=== PATIENT | female | born 1980 | race Caucasian/White ===

== ENCOUNTER 2017-02-22 11:17 | Emergency (ER) | payer MEDICAID ==
[~2017-02-22] VITALS: Ht 162.6 cm; Wt 84.0 kg
[~2017-02-22 11:17] MED LIST: BUS15T PO; HYDR-3972 PO; LORA-269 PO; ONDA8TAB9 PO; VENL150T3 PO
[2017-02-22 11:42] LABS: CLARITY,URINE Clear (Clear); COLOR,URINE Yellow (Yellow); GLUCOSE, URINE Negative (Neg); KETONES,URINE Negative (Neg); LEUKOCYTE ESTERASE ,URINE Negative (Neg); NITRITES, URINE Negative (Neg); OCCULT BLOOD,URINE Negative (Neg); PH,URINE 7.5 (4.8-8.0); PROTEIN,URINE Negative (Neg); UROBILINOGEN,URINE 0.2 E.U/dL (0.2-1.0)
[2017-02-22 11:43] LABS: UA COLLECTION TYPE CLN CATCH MIDSTREAM
[2017-02-22] MEDS ORDERED: ondansetron 4mg rapidly disintigrating tab PO ONE (13:30)
[2017-02-22] MEDS ORDERED: CefTRIAXone 250MG IM Kit w/LIDOcaine IM ONE (13:30)
[2017-02-22] MEDS ORDERED: azithromycin 250mg tablet PO ONE (13:30)
[2017-02-22 13:56] VITALS: BP 130/94
== END 2017-02-22 14:00 | disposition home or self-care (01) ==
LOC: ER 11:18
DX: R30.0 Dysuria (principal)
CPT/HCPCS: 36415; 81003; 87210; 87491; 87591; 96372; 99284; J0696

== ENCOUNTER 2018-03-26 09:48 | Emergency (ER) | payer MEDICAID ==
[~2018-03-26] VITALS: Ht 162.6 cm; Wt 68.0 kg
[2018-03-26 10:30] VITALS: BP 133/93
== END 2018-03-26 14:14 | disposition home or self-care (01) ==
LOC: ER 09:48
DX: S93.492A Sprain of other ligament of left ankle, initial encounter (principal); Z98.890 Other specified postprocedural states; Z79.899 Other long term (current) drug therapy; W00.2XXA Other fall from one level to another due to ice and snow, initial encounter; Y93.89 Activity, other specified; Y92.89 Other specified places as the place of occurrence of the external cause; Y99.9 Unspecified external cause status
CPT/HCPCS: 29515; 73610; 99284

== ENCOUNTER 2018-10-25 11:40 | Emergency (ER) | payer BC ==
[~2018-10-25] VITALS: Ht 162.6 cm; Wt 78.0 kg
[2018-10-25] MEDS ORDERED: CHLO473M3 PO (12:10)
[2018-10-25] MEDS ORDERED: CLIN-96 PO (12:10)
[2018-10-25] MEDS ORDERED: HYDR-4353 PO (12:10)
[2018-10-25 12:28] VITALS: BP 118/72
== END 2018-10-25 12:30 | disposition home or self-care (01) ==
LOC: ER 11:41
DX: K04.7 Periapical abscess without sinus (principal); Z98.890 Other specified postprocedural states; Z79.899 Other long term (current) drug therapy
CPT/HCPCS: 99283

== ENCOUNTER 2018-12-03 02:42 | Emergency (ER) | payer BC ==
[~2018-12-03] VITALS: Ht 167.6 cm; Wt 72.7 kg
[~2018-12-03 02:42] MED LIST changes: +CHLO473M3 PO; +CLIN-90 PO
--- NOTE | 2018-12-03 03:08 | NUR ---
C-COLLAR PLACED ON PT DUE TO POSITIVE NECK PAIN AND POINT TENDERNESS
[2018-12-03] MEDS ORDERED: HYDROcodone/acetaminophen 10/325mg tab PO ONE (03:25)
[2018-12-03] MEDS ORDERED: ondansetron 4mg rapidly disintigrating tab PO ONE (03:25)
[2018-12-03] MEDS ORDERED: fentaNYL/PF 50MCG/1 ML 2ML syringe IM ONE (04:35)
--- NOTE | 2018-12-03 04:44 | NUR ---
REPORTED TO [facility]
[2018-12-03] MEDS ORDERED: HYDR-4383 PO (04:55)
[2018-12-03] MEDS ORDERED: IBUP-1984 PO (04:55)
[2018-12-03 05:13] VITALS: BP 122/80
== END 2018-12-03 05:21 | disposition home or self-care (01) ==
LOC: ER 02:44
DX: M25.511 Pain in right shoulder (principal); M54.2 Cervicalgia; Z98.890 Other specified postprocedural states; Z79.2 Long term (current) use of antibiotics; Z79.899 Other long term (current) drug therapy
CPT/HCPCS: 70450; 72125; 73030; 96372; 99284; J3010

== ENCOUNTER 2019-01-07 20:10 | Emergency (ER) | payer BC ==
[~2019-01-07] VITALS: Ht 162.6 cm; Wt 79.5 kg
[~2019-01-07 20:10] MED LIST changes: +HYDR-4383 PO
[2019-01-07 20:16] VITALS: BP 128/88
[2019-01-07] MEDS ORDERED: sulfamethoxazole/trimethoprim DS (800/160mg) tablet PO ONE (20:30)
[2019-01-07] MEDS ORDERED: cephalexin 250mg capsule PO ONE (20:30)
[2019-01-07] MEDS ORDERED: acetaminophen 325mg tablet PO ONE (20:30)
[2019-01-07] MEDS ORDERED: CEPH-572 PO (20:35)
[2019-01-07] MEDS ORDERED: SULF1TAB49 PO (20:35)
[2019-01-07] MEDS ORDERED: ibuprofen tablet 400 MG TABLET PO ONE (21:10)
== END 2019-01-07 21:17 | disposition home or self-care (01) ==
LOC: ER 20:11
DX: L03.115 Cellulitis of right lower limb (principal); L73.8 Other specified follicular disorders; F10.99 Alcohol use, unspecified with unspecified alcohol-induced disorder; Z98.890 Other specified postprocedural states; Z79.899 Other long term (current) drug therapy; Y90.9 Presence of alcohol in blood, level not specified
CPT/HCPCS: 99284

== ENCOUNTER 2019-01-09 18:53 | Inpatient (IN) | payer BC ==
[~2019-01-09] VITALS: Ht 162.6 cm; Wt 66.5 kg
[~2019-01-09 18:53] MED LIST changes: +CEPH-572 PO; +SULF1TAB49 PO
[2019-01-09] MEDS ORDERED: CefTRIAXone 2gm/D5W 50ml 50 ML IV ONE (20:45)
[2019-01-09] MEDS ORDERED: normal saline 1000ML IV soln IV ONE (20:45)
[2019-01-09] MEDS ORDERED: vancomycin/NS 1 GM ADD-VANTAGE 250 ML IV ONE (20:45)
[2019-01-09 20:54] LABS: BASOPHILS % (AUTO) 0.2 % (0-1); EOSINOPHILS # (AUTO) 0.1 X10'3 (0-0.9); EOSINOPHILS % (AUTO) 0.4 % (0-6); HEMATOCRIT 30.3 % (35.0-45.0); LYMPHOCYTES # (AUTO) 1.8 X10'3 (1.1-4.8); LYMPHOCYTES % (AUTO) 10.4 % (21-51); MEAN CORPUSCULAR HEMOGLOBIN 26.9 PG (27.0-31.0); MEAN CORPUSCULAR HGB CONC 33.1 g/dL (33.0-36.5); MEAN CORPUSCULAR VOLUME 81.1 FL (78-98); MEAN PLATELET VOLUME 8.3 FL (7.4-10.4); MONOCYTES # (AUTO) 1.7 X10'3 (0-0.9); MONOCYTES % (AUTO) 9.8 % (2-12); NEUTROPHILS # (AUTO) 13.6 X10'3 (1.8-7.7); NEUTROPHILS % (AUTO) 79.2 % (42-75); PLATELET COUNT 185 X10'3 (140-440); RED BLOOD COUNT 3.74 X10'6 (4.20-5.60); RED CELL DISTRIBUTION WIDTH 16.4 % (11.5-14.5); WHITE BLOOD COUNT 17.2 X10'3 (4.5-11.0)
[2019-01-09 21:08] LABS: PARTIAL THROMBOPLASTIN TIME 35 SECONDS (22-32)
[2019-01-09 21:20] LABS: ALANINE AMINOTRANSFERASE 13 U/L (12-78); ALBUMIN 2.9 G/DL (3.4-5.0); ALBUMIN/GLOBULIN RATIO 0.7 (1.1-1.5); ALKALINE PHOSPHATASE 74 IU/L (46-116); ANION GAP 11 (8-16); ASPARTATE AMINO TRANSFERASE 13 U/L (10-37); BILIRUBIN,TOTAL 0.3 MG/DL (0.1-1.0); BLOOD UREA NITROGEN 16 MG/DL (7-18); BUN/CREATININE RATIO 19.5 (6.6-38.0); CALCIUM 8.4 MG/DL (8.5-10.1); CHLORIDE 98 MMOL/L (99-107); CREATININE 0.82 MG/DL (0.40-0.90); GLUCOSE 90 MG/DL (70-104); MAGNESIUM 1.9 MG/DL (1.5-2.4); POTASSIUM 3.1 MMOL/L (3.5-5.1); SODIUM 133 MMOL/L (135-145); TOTAL CARBON DIOXIDE 24.2 MMOL/L (24-32); TOTAL PROTEIN 7.1 G/DL (6.4-8.2); eGFR 77 ML/MIN
[2019-01-09] MEDS ORDERED: potassium Cl 20 mEq SR tablet PO ONE (21:40)
[2019-01-09 22:34] LABS: CLARITY,URINE CLEAR (Clear); COLOR,URINE YELLOW (Yellow); GLUCOSE, URINE NEGATIVE (Neg); KETONES,URINE NEGATIVE (Neg); LEUKOCYTE ESTERASE ,URINE NEGATIVE (Neg); NITRITES, URINE NEGATIVE (Neg); OCCULT BLOOD,URINE SMALL (Neg); PROTEIN,URINE NEGATIVE (Neg); UROBILINOGEN,URINE 0.2 E.U/dL (0.2-1.0)
[2019-01-09 22:38] LABS: UA COLLECTION TYPE CLN CATCH MIDSTREAM
[2019-01-09 22:41] LABS: BACTERIA,URINE FEW /HPF (Neg); MUCUS STRANDS NONE SEEN /LPF (Neg); RBC,URINE 0-2 /HPF (0-2); SQUAMOUS EPITHELIAL CELL,UR FEW /LPF (FEW); WBC,URINE 0-4 /HPF (0-4)
[2019-01-09] MEDS ORDERED: magnesium Cl slow-release 64mg tablet PO PRN (22:50)
[2019-01-09] MEDS ORDERED: magnesium 2GM in 50ml NS 50 ML IV PRN (22:50)
[2019-01-09] MEDS ORDERED: ondansetron/PF 4mg/2ml inj IV PRN (22:50)
[2019-01-09] MEDS ORDERED: potassium CL 10mEq/100ml bag 100 ML IV PRN ×2 (22:50)
[2019-01-09] MEDS ORDERED: potassium Cl 20 mEq SR tablet PO PRN ×2 (22:50)
[2019-01-09] MEDS ORDERED: magnesium 4gm in 100ml NS 100 ML IV PRN (22:50)
[2019-01-09 22:58] LABS: URINE HCG NEGATIVE (NEG)
[2019-01-09] MEDS ORDERED: TRAZ-219 PO (23:23)
[2019-01-09] MEDS: HYDROcodone/acetaminophen 5mg/325mg tablet PO PRN (23:59)
[2019-01-10] VITALS: BP 105/55
[2019-01-10] MEDS: normal saline 1000ml 1,000 ML IV SCH
--- NOTE | 2019-01-10 | NUR ---
Received report from Dulce Maria FISHER in ER, pt arrived via Wheelchair, ambulated to bed with no assistance, oriented pt to room, will assess.
[2019-01-10] MEDS ORDERED: morphine 2 MG/ML inj. syringe IV ONE (02:25)
--- NOTE | 2019-01-10 06:15 | NUR ---
Patient in room [facility]. I have received report from PHILLIP Bustos and had the opportunity to ask questions and assume patient care.
[2019-01-10 06:30] VITALS: BP 108/70
--- NOTE | 2019-01-10 06:45 | NUR ---
Gave report to Ciarra RN pt is wanting to some pain meds
[2019-01-10] MEDS ORDERED: lactobacillus rhamnosus 10,000 MMU CELLS/CAPSULE PO SCH (07:30)
[2019-01-10] MEDS: vancomycin/NS 1 GM ADD-VANTAGE 250 ML IV SCH ×2 (07:40→19:12)
[2019-01-10] MEDS: HYDROcodone/acetaminophen 5mg/325mg tablet PO PRN (07:42)
[2019-01-10] MEDS: lactobacillus rhamnosus 10,000 MMU CELLS/CAPSULE PO SCH (07:48)
[2019-01-10] MEDS ORDERED: magnesium hydroxide 30ml (MOM) UD suspension PO PRN (07:55)
[2019-01-10] MEDS: K and/or MAG REPLACEMENT MC SCH (08:00)
[2019-01-10 08:24] LABS: BASOPHILS # (AUTO) 0.1 X10'3 (0-0.2); BASOPHILS % (AUTO) 0.6 % (0-1); EOSINOPHILS # (AUTO) 0.1 X10'3 (0-0.9); EOSINOPHILS % (AUTO) 1.1 % (0-6); HEMATOCRIT 29.2 % (35.0-45.0); HEMOGLOBIN 9.6 g/dl (12.0-16.0); LYMPHOCYTES # (AUTO) 0.9 X10'3 (1.1-4.8); LYMPHOCYTES % (AUTO) 6.7 % (21-51); MEAN CORPUSCULAR HEMOGLOBIN 27.1 PG (27.0-31.0); MEAN CORPUSCULAR HGB CONC 32.8 g/dL (33.0-36.5); MEAN CORPUSCULAR VOLUME 82.6 FL (78-98); MEAN PLATELET VOLUME 9.6 FL (7.4-10.4); MONOCYTES # (AUTO) 1.4 X10'3 (0-0.9); NEUTROPHILS # (AUTO) 10.5 X10'3 (1.8-7.7); NEUTROPHILS % (AUTO) 80.6 % (42-75); PLATELET COUNT 183 X10'3 (140-440); RED BLOOD COUNT 3.54 X10'6 (4.20-5.60); RED CELL DISTRIBUTION WIDTH 16.5 % (11.5-14.5); WHITE BLOOD COUNT 13.1 X10'3 (4.5-11.0)
[2019-01-10] MEDS: sennosides/docusate sodium tablet PO SCH ×2 (08:29→19:12)
[2019-01-10] MEDS: morphine 2 MG/ML inj. syringe IV PRN ×4 (08:30→20:05)
[2019-01-10 08:41] LABS: ALBUMIN 2.7 G/DL (3.4-5.0); ANION GAP 13 (8-16); BLOOD UREA NITROGEN 10 MG/DL (7-18); BUN/CREATININE RATIO 15.2 (6.6-38.0); CALCIUM 8.1 MG/DL (8.5-10.1); CHLORIDE 102 MMOL/L (99-107); CREATININE 0.66 MG/DL (0.40-0.90); GLUCOSE 92 MG/DL (70-104); POTASSIUM 3.9 MMOL/L (3.5-5.1); SODIUM 136 MMOL/L (135-145); TOTAL CARBON DIOXIDE 21.2 MMOL/L (24-32); eGFR > 90 ML/MIN
[2019-01-10] MEDS ORDERED: vancomycin/NS 1 GM ADD-VANTAGE 250 ML IV SCH (09:00)
[2019-01-10] MEDS ORDERED: pneumococcal 23-VAL P-sac vacc 25 mcg/0.5ml vial IMVAC ONE (10:00)
[2019-01-10] MEDS: HYDROcodone/acetaminophen 10/325mg tab PO PRN ×4 (10:21→22:55)
[2019-01-10] MEDS: piperacillin/tazo 3.375gm/50ml 50 ML IV SCH ×2 (10:21→15:57)
[2019-01-10 11:00] VITALS: BP 98/53
[2019-01-10] MEDS: nicotine 21mg patch - 24 hr TD SCH (15:23)
[2019-01-10 18:00] VITALS: BP 122/62
--- NOTE | 2019-01-10 18:27 | NUR ---
Received report from PHILLIP Lafleur. Patient is awake and alert on room air, in no apparent distress. Call light and items of frequent use within reach. Will continue to monitor.
--- NOTE | 2019-01-10 18:30 | NUR ---
Problems reprioritized. Patient report given, questions answered & plan of care reviewed with PHILLIP Villegas.
[2019-01-10] MEDS: traZODone 50mg tablet PO SCH (20:14)
[2019-01-10] MEDS: chlorhexidine gluconate 15ml Cup****oral rinse MM SCH (20:14)
[2019-01-11] MEDS: acetaminophen 325mg tablet PO PRN ×2 (00:06→17:14)
[2019-01-11] MEDS: piperacillin/tazo 3.375gm/50ml 50 ML IV SCH ×4 (00:06→17:04)
[2019-01-11 00:10] VITALS: BP 128/71
[2019-01-11] MEDS: morphine 2 MG/ML inj. syringe IV PRN ×4 (02:12→17:04)
[2019-01-11 05:52] LABS: BASOPHILS # (AUTO) 0.1 X10'3 (0-0.2); BASOPHILS % (AUTO) 0.5 % (0-1); EOSINOPHILS # (AUTO) 0.1 X10'3 (0-0.9); EOSINOPHILS % (AUTO) 0.7 % (0-6); HEMATOCRIT 28.5 % (35.0-45.0); HEMOGLOBIN 9.5 g/dl (12.0-16.0); LYMPHOCYTES # (AUTO) 1.3 X10'3 (1.1-4.8); LYMPHOCYTES % (AUTO) 11.6 % (21-51); MEAN CORPUSCULAR HEMOGLOBIN 27.2 PG (27.0-31.0); MEAN CORPUSCULAR HGB CONC 33.5 g/dL (33.0-36.5); MEAN CORPUSCULAR VOLUME 81.2 FL (78-98); MONOCYTES # (AUTO) 1.3 X10'3 (0-0.9); MONOCYTES % (AUTO) 11.7 % (2-12); NEUTROPHILS # (AUTO) 8.5 X10'3 (1.8-7.7); NEUTROPHILS % (AUTO) 75.5 % (42-75); PLATELET COUNT 224 X10'3 (140-440); RED BLOOD COUNT 3.51 X10'6 (4.20-5.60); RED CELL DISTRIBUTION WIDTH 16.2 % (11.5-14.5); WHITE BLOOD COUNT 11.3 X10'3 (4.5-11.0)
[2019-01-11 05:58] LABS: ALBUMIN 2.5 G/DL (3.4-5.0); ANION GAP 9 (8-16); BLOOD UREA NITROGEN 5 MG/DL (7-18); BUN/CREATININE RATIO 7.6 (6.6-38.0); CALCIUM 8.6 MG/DL (8.5-10.1); CHLORIDE 103 MMOL/L (99-107); CREATININE 0.66 MG/DL (0.40-0.90); GLUCOSE 99 MG/DL (70-104); MAGNESIUM 2.2 MG/DL (1.5-2.4); POTASSIUM 3.7 MMOL/L (3.5-5.1); SODIUM 136 MMOL/L (135-145); TOTAL CARBON DIOXIDE 24.3 MMOL/L (24-32); eGFR > 90 ML/MIN
--- NOTE | 2019-01-11 06:22 | NUR ---
Problems reprioritized. Patient report given, questions answered & plan of care reviewed with PHILLIP Lafleur.
--- NOTE | 2019-01-11 06:25 | NUR ---
Patient in room [facility] 360. I have received report from PHILLIP Villegas and had the opportunity to ask questions and assume patient care.
[2019-01-11 06:30] VITALS: BP 101/69
[2019-01-11] MEDS: K and/or MAG REPLACEMENT MC SCH (07:11)
[2019-01-11] MEDS: sennosides/docusate sodium tablet PO SCH ×2 (07:40→20:28)
[2019-01-11] MEDS: nicotine 21mg patch - 24 hr TD SCH (07:40)
[2019-01-11] MEDS: vancomycin/NS 1 GM ADD-VANTAGE 250 ML IV SCH ×2 (07:41→21:19)
[2019-01-11] MEDS: chlorhexidine gluconate 15ml Cup****oral rinse MM SCH ×2 (07:41→20:28)
[2019-01-11] MEDS: lactobacillus rhamnosus 10,000 MMU CELLS/CAPSULE PO SCH (07:41)
[2019-01-11] MEDS: HYDROcodone/acetaminophen 10/325mg tab PO PRN ×3 (10:42→20:27)
[2019-01-11 11:00] VITALS: BP 127/70
[2019-01-11 18:00] VITALS: BP 101/64
--- NOTE | 2019-01-11 18:10 | NUR ---
Problems reprioritized. Patient report given, questions answered & plan of care reviewed with PHILLIP Dixon.
[2019-01-11] MEDS ORDERED: VANCOMYCIN LEVEL IV ONE (18:30)
[2019-01-11] MEDS: traZODone 50mg tablet PO SCH (20:26)
[2019-01-11] MEDS: normal saline 1000ml 1,000 ML IV SCH (22:46)
[2019-01-12] VITALS (20 sets, daily range): BP systolic 94–115; BP diastolic 56–74
[2019-01-12] MEDS: piperacillin/tazo 3.375gm/50ml 50 ML IV SCH ×4 (00:18→23:46)
[2019-01-12] MEDS: HYDROcodone/acetaminophen 10/325mg tab PO PRN ×4 (00:18→16:35)
[2019-01-12] MEDS: morphine 2 MG/ML inj. syringe IV PRN ×5 (04:54→18:08)
[2019-01-12 05:40] LABS: BASOPHILS # (AUTO) 0.1 X10'3 (0-0.2); BASOPHILS % (AUTO) 0.6 % (0-1); EOSINOPHILS # (AUTO) 0.1 X10'3 (0-0.9); HEMATOCRIT 27.5 % (35.0-45.0); HEMOGLOBIN 9.4 g/dl (12.0-16.0); LYMPHOCYTES # (AUTO) 1.8 X10'3 (1.1-4.8); MEAN CORPUSCULAR HEMOGLOBIN 27.6 PG (27.0-31.0); MEAN CORPUSCULAR HGB CONC 34.2 g/dL (33.0-36.5); MEAN CORPUSCULAR VOLUME 80.8 FL (78-98); MEAN PLATELET VOLUME 8.1 FL (7.4-10.4); MONOCYTES # (AUTO) 1.1 X10'3 (0-0.9); MONOCYTES % (AUTO) 11.8 % (2-12); NEUTROPHILS # (AUTO) 6.3 X10'3 (1.8-7.7); NEUTROPHILS % (AUTO) 67.6 % (42-75); PLATELET COUNT 257 X10'3 (140-440); RED BLOOD COUNT 3.41 X10'6 (4.20-5.60); RED CELL DISTRIBUTION WIDTH 16.3 % (11.5-14.5); WHITE BLOOD COUNT 9.3 X10'3 (4.5-11.0)
[2019-01-12 05:54] LABS: HEMOGLOBIN A1C 5.7 % (4.5-6.2)
--- NOTE | 2019-01-12 06:00 | NUR ---
Patient in room [facility]. I have received report from PHILLIP Lafleur and had the opportunity to ask questions and assume patient care.
[2019-01-12 06:10] LABS: ALANINE AMINOTRANSFERASE 15 U/L (12-78); ALBUMIN 2.5 G/DL (3.4-5.0); ALBUMIN/GLOBULIN RATIO 0.6 (1.1-1.5); ALKALINE PHOSPHATASE 66 IU/L (46-116); ANION GAP 9 (8-16); ASPARTATE AMINO TRANSFERASE 12 U/L (10-37); BILIRUBIN,TOTAL 0.3 MG/DL (0.1-1.0); BLOOD UREA NITROGEN 8 MG/DL (7-18); BUN/CREATININE RATIO 12.1 (6.6-38.0); CALCIUM 8.5 MG/DL (8.5-10.1); CHLORIDE 102 MMOL/L (99-107); CREATININE 0.66 MG/DL (0.40-0.90); GLUCOSE 98 MG/DL (70-104); POTASSIUM 3.9 MMOL/L (3.5-5.1); SODIUM 137 MMOL/L (135-145); TOTAL CARBON DIOXIDE 25.6 MMOL/L (24-32); TOTAL PROTEIN 6.5 G/DL (6.4-8.2); eGFR > 90 ML/MIN
--- NOTE | 2019-01-12 06:25 | NUR ---
Patient in room [facility]. I have received report from PHILLIP Dixon and had the opportunity to ask questions and assume patient care.
--- NOTE | 2019-01-12 06:35 | NUR ---
Problems reprioritized. Patient report given, questions answered & plan of care reviewed with PHILLIP Lafleur.
[2019-01-12] MEDS: lactobacillus rhamnosus 10,000 MMU CELLS/CAPSULE PO SCH (06:53)
[2019-01-12] MEDS: nicotine 21mg patch - 24 hr TD SCH (06:53)
[2019-01-12] MEDS: vancomycin/NS 1 GM ADD-VANTAGE 250 ML IV SCH ×3 (07:43→21:58)
[2019-01-12] MEDS: sennosides/docusate sodium tablet PO SCH ×2 (07:44→19:33)
[2019-01-12] MEDS: chlorhexidine gluconate 15ml Cup****oral rinse MM SCH ×3 (07:44→19:32)
[2019-01-12] MEDS: K and/or MAG REPLACEMENT MC SCH (08:00)
--- NOTE | 2019-01-12 08:58 | NUR ---
Student Medication Administration: For this medication-pass time frame, all medication were reviewed, dispensed, administered and documented per hospital policy by [place].
--- NOTE | 2019-01-12 08:58 | NUR ---
Student documentation: I have reviewed and agree with all interventions, assessments performed and documented by Sarina, professional nursing assistant.
[2019-01-12] MEDS ORDERED: vancomycin/NS 1 GM ADD-VANTAGE 250 ML IV SCH (09:00)
[2019-01-12 09:26] LABS: PRE OP PARTIAL THROMB. TIME 28 SECONDS (22-32)
--- NOTE | 2019-01-12 11:54 | NUR ---
pt left for surgery. BG 89.
--- NOTE | 2019-01-12 11:57 | NUR ---
Problems reprioritized. Patient report given, questions answered & plan of care reviewed with PHILLIP Lafleur.
--- NOTE | 2019-01-12 12:00 | NUR ---
Pt off the floor to OR
[2019-01-12] MEDS ORDERED: sevoflurane 250ml liquid IH ONE (12:38)
[2019-01-12] MEDS ORDERED: fentaNYL/PF 50MCG/1 ML 2ML syringe ONE (12:41)
[2019-01-12] MEDS ORDERED: midazolam 2 mg/2 ml injection ONE (12:42)
[2019-01-12] MEDS ORDERED: ROPIVAcaine 0.5% (5mg/ml) 30ml vial ONE (13:03)
[2019-01-12] MEDS ORDERED: propofol inj 20 ML IV ONE (13:09)
--- NOTE | 2019-01-12 13:15 | NUR ---
ADMITTED TO PACU FROM OR ACCOMPANIED BY ANESTHESIA. INTIAL PHYSICAL ASSESSMENT DONE AND RECORDED. REPORT RECEIVED FROM ANESTHESIA.
--- NOTE | 2019-01-12 13:55 | NUR ---
Report received from SERVICE LOSS CONTROL CONSULTANTChing
--- NOTE | 2019-01-12 14:03 | NUR ---
Pt returned to room 360A from PACU
--- NOTE | 2019-01-12 14:05 | NUR ---
PACU DISCHARGE CRITERIA MET, REPORT GIVEN TO FLOOR. DENIES PAIN OR DISCOMFORT, TRANSFERRED TO ROOM IN STABLE GOOD CONDITION.
--- NOTE | 2019-01-12 18:15 | NUR ---
Problems reprioritized. Patient report given, questions answered & plan of care reviewed with PHILLIP Lombardi.
[2019-01-12] MEDS: traZODone 50mg tablet PO SCH (21:11)
[2019-01-12] MEDS: morphine 4 MG/ML inj SYRINge IV PRN (21:12)
[2019-01-13] MEDS: HYDROcodone/acetaminophen 10/325mg tab PO PRN ×5 (00:33→20:12)
[2019-01-13] MEDS: morphine 4 MG/ML inj SYRINge IV PRN ×5 (02:47→22:33)
[2019-01-13] MEDS: normal saline 1000ml 1,000 ML IV SCH (05:53)
[2019-01-13] MEDS: vancomycin/NS 1 GM ADD-VANTAGE 250 ML IV SCH ×2 (05:53→13:46)
[2019-01-13 06:02] LABS: BASOPHILS % (AUTO) 0.6 % (0-1); EOSINOPHILS # (AUTO) 0.1 X10'3 (0-0.9); HEMOGLOBIN 9.5 g/dl (12.0-16.0); LYMPHOCYTES # (AUTO) 1.7 X10'3 (1.1-4.8); LYMPHOCYTES % (AUTO) 27.2 % (21-51); MEAN CORPUSCULAR HEMOGLOBIN 27.2 PG (27.0-31.0); MEAN CORPUSCULAR HGB CONC 32.9 g/dL (33.0-36.5); MEAN CORPUSCULAR VOLUME 82.7 FL (78-98); MEAN PLATELET VOLUME 8.2 FL (7.4-10.4); MONOCYTES # (AUTO) 0.6 X10'3 (0-0.9); MONOCYTES % (AUTO) 9.4 % (2-12); NEUTROPHILS # (AUTO) 3.7 X10'3 (1.8-7.7); NEUTROPHILS % (AUTO) 60.8 % (42-75); PLATELET COUNT 257 X10'3 (140-440); RED BLOOD COUNT 3.51 X10'6 (4.20-5.60); RED CELL DISTRIBUTION WIDTH 16.4 % (11.5-14.5); WHITE BLOOD COUNT 6.1 X10'3 (4.5-11.0)
[2019-01-13 06:07] LABS: ALBUMIN 2.3 G/DL (3.4-5.0); ANION GAP 7 (8-16); BLOOD UREA NITROGEN 6 MG/DL (7-18); BUN/CREATININE RATIO 10.7 (6.6-38.0); CALCIUM 8.4 MG/DL (8.5-10.1); CHLORIDE 105 MMOL/L (99-107); CREATININE 0.56 MG/DL (0.40-0.90); GLUCOSE 92 MG/DL (70-104); MAGNESIUM 2.1 MG/DL (1.5-2.4); POTASSIUM 4.4 MMOL/L (3.5-5.1); SODIUM 141 MMOL/L (135-145); TOTAL CARBON DIOXIDE 28.8 MMOL/L (24-32); eGFR > 90 ML/MIN
[2019-01-13] MEDS: nicotine 21mg patch - 24 hr TD SCH (07:10)
[2019-01-13] MEDS: lactobacillus rhamnosus 10,000 MMU CELLS/CAPSULE PO SCH (07:10)
[2019-01-13] MEDS: sennosides/docusate sodium tablet PO SCH ×2 (07:11→19:36)
[2019-01-13] MEDS: piperacillin/tazo 3.375gm/50ml 50 ML IV SCH ×3 (07:12→16:25)
[2019-01-13] MEDS: K and/or MAG REPLACEMENT MC SCH (07:28)
[2019-01-13 08:00] VITALS: BP 108/68
[2019-01-13] MEDS ORDERED: VANCOMYCIN LEVEL IV ONE ×2 (08:30→13:30)
[2019-01-13] MEDS: chlorhexidine gluconate 15ml Cup****oral rinse MM SCH ×2 (08:57→19:36)
[2019-01-13 11:00] VITALS: BP 109/60
--- NOTE | 2019-01-13 11:00 | NUR ---
Patient woundcare conducted by woundcare nurse.
--- NOTE | 2019-01-13 18:38 | NUR ---
Patient in room [facility]. I have received report from Neha IFSHER and Cindy RN and had the opportunity to ask questions and assume patient care. Pt sitting up in bed eating dinner with a friend at bedside. No signs of distress, will continue to monitor.
--- NOTE | 2019-01-13 18:39 | NUR ---
Patient in room [facility]. I have received report from Cindy RN and Dominic RN and had the opportunity to ask questions and assume patient care.
--- NOTE | 2019-01-13 19:23 | NUR ---
Problems reprioritized. Patient report given, questions answered & plan of care reviewed with Candace FISHER. Addendum: 01/13/19 at 1927 by Neha Harmon RN And PHILLIP Trevino
--- NOTE | 2019-01-13 19:28 | NUR ---
Patients rounded on hourly for frequent assessment of needs.
[2019-01-13 20:00] VITALS: BP 111/66
[2019-01-13] MEDS: traZODone 50mg tablet PO SCH (20:11)
[2019-01-13] MEDS: VANCOmycin 1250MG/NS 250ml Bag 250 ML IV SCH (23:37)
[2019-01-14 00:08] VITALS: BP 110/66
[2019-01-14] MEDS: piperacillin/tazo 3.375gm/50ml 50 ML IV SCH ×2 (01:40→08:03)
[2019-01-14] MEDS: HYDROcodone/acetaminophen 10/325mg tab PO PRN ×3 (01:46→12:19)
[2019-01-14] MEDS: morphine 4 MG/ML inj SYRINge IV PRN ×2 (02:39→06:42)
[2019-01-14 04:57] VITALS: BP 111/66
[2019-01-14] MEDS: VANCOmycin 1250MG/NS 250ml Bag 250 ML IV SCH (05:15)
[2019-01-14 05:55] LABS: ALBUMIN 2.5 G/DL (3.4-5.0); ANION GAP 9 (8-16); BLOOD UREA NITROGEN 10 MG/DL (7-18); BUN/CREATININE RATIO 16.4 (6.6-38.0); CALCIUM 8.7 MG/DL (8.5-10.1); CHLORIDE 105 MMOL/L (99-107); CREATININE 0.61 MG/DL (0.40-0.90); GLUCOSE 97 MG/DL (70-104); MAGNESIUM 2.1 MG/DL (1.5-2.4); POTASSIUM 4.4 MMOL/L (3.5-5.1); SODIUM 141 MMOL/L (135-145); TOTAL CARBON DIOXIDE 27.5 MMOL/L (24-32); eGFR > 90 ML/MIN
[2019-01-14 06:00] LABS: BASOPHILS % (AUTO) 0.7 % (0-1); EOSINOPHILS # (AUTO) 0.1 X10'3 (0-0.9); EOSINOPHILS % (AUTO) 1.8 % (0-6); HEMOGLOBIN 10.2 g/dl (12.0-16.0); LYMPHOCYTES # (AUTO) 1.9 X10'3 (1.1-4.8); LYMPHOCYTES % (AUTO) 28.8 % (21-51); MEAN CORPUSCULAR HEMOGLOBIN 27.3 PG (27.0-31.0); MEAN CORPUSCULAR HGB CONC 32.9 g/dL (33.0-36.5); MONOCYTES # (AUTO) 0.6 X10'3 (0-0.9); MONOCYTES % (AUTO) 8.6 % (2-12); NEUTROPHILS % (AUTO) 60.1 % (42-75); PLATELET COUNT 330 X10'3 (140-440); RED BLOOD COUNT 3.74 X10'6 (4.20-5.60); WHITE BLOOD COUNT 6.7 X10'3 (4.5-11.0)
--- NOTE | 2019-01-14 06:20 | NUR ---
Problems reprioritized. Patient report given, questions answered & plan of care reviewed with Cindy FISEHR .
--- NOTE | 2019-01-14 06:23 | NUR ---
Problems reprioritized. Patient report given, questions answered & plan of care reviewed with Cindy FISHER.
--- NOTE | 2019-01-14 06:32 | NUR ---
Problems reprioritized. Patient report given, questions answered & plan of care reviewed with Cindy RN and Neha FISHER.
[2019-01-14 08:00] VITALS: BP 100/65
[2019-01-14] MEDS: K and/or MAG REPLACEMENT MC SCH (08:00)
[2019-01-14] MEDS: chlorhexidine gluconate 15ml Cup****oral rinse MM SCH (08:03)
[2019-01-14] MEDS: sennosides/docusate sodium tablet PO SCH (08:03)
[2019-01-14] MEDS: lactobacillus rhamnosus 10,000 MMU CELLS/CAPSULE PO SCH (08:04)
[2019-01-14] MEDS: nicotine 21mg patch - 24 hr TD SCH (08:04)
[2019-01-14 11:00] VITALS: BP 114/75
[2019-01-14] MEDS ORDERED: AMOX-580 PO (12:14)
[2019-01-14] MEDS ORDERED: IBUP-1984 PO (12:14)
[2019-01-14] MEDS ORDERED: ACET-1008 PO (12:14)
[2019-01-14] MEDS ORDERED: LACT1CAP26 PO (12:14)
[2019-01-14 12:22] VITALS: BP 123/80
--- NOTE | 2019-01-14 13:32 | NUR ---
Initial: Pt admitted for cellulitis of right groin, s/p I&D. Pt eating well, PO intake avg 75% meeting nutrient needs. LBM 01/12. No nutrition diagnosis at this time. Will continue to monitor. Recommendation: 1. Continue regular diet; monitor for additional protein needs 2. Bowel care as needed 3. Weight per rx Addendum: 01/14/19 at 1333 by Wing Pilar MARCUS Amended: Links added.
--- NOTE | 2019-01-14 15:22 | NUR ---
patient discharged home with patient education on follow up treatment and woundcare provided to patient and friend. Patient IV removed, patient left with all belongings, appropriate for discharge, verbalized understanding of discharge and woundcare instructions. Will make appointment with MD Arreaga.
[2019-01-14] MEDS ORDERED: VANCOMYCIN LEVEL IV ONE (21:30)
== END 2019-01-14 13:34 | disposition home or self-care (01) | DRG 581 ==
LOC: ER 18:54 → ED HOLD 22:48 → SUR 3N 23:43
PROVIDERS: ADMIT Internal Medicine; ATTEND Family Medicine
PROC: 0Y950ZZ Drainage of Right Inguinal Region, Open Approach (ICD-10-PCS; principal; 2019-01-12 12:38)
DX: L03.314 Cellulitis of groin (principal); L02.214 Cutaneous abscess of groin; E87.6 Hypokalemia; F17.200 Nicotine dependence, unspecified, uncomplicated; Z86.14 Personal history of Methicillin resistant Staphylococcus aureus infection; Z28.21 Immunization not carried out because of patient refusal; Z71.6 Tobacco abuse counseling
CPT/HCPCS: 96365; 96368; 99285; Z7506; 36415; 80048; 80053; 80202; 81001; 81025; 82948; 83036; 83605; 83735; 84145; 85025; 85610; 85730; 87040; 87070; 87075; 87077; 87081; 87186; A4215; A4618; A6253; A6407; A7000; G0378; J0696; J2250; J2270; J2405; J2543; J2704; J2795; J3010; J3370; J7030

== ENCOUNTER 2022-07-21 17:51 | Emergency (ER) | payer BC, MEDICAID ==
[~2022-07-21] VITALS: Ht 162.6 cm; Wt 86.6 kg
[~2022-07-21 17:51] MED LIST changes: -BUS15T PO; -CEPH-572 PO; -CLIN-90 PO; -HYDR-3972 PO; -HYDR-4383 PO; +LACT1CAP26 PO; -LORA-269 PO; -ONDA8TAB9 PO; -SULF1TAB49 PO; +TRAZ-256 PO; -VENL150T3 PO
[2022-07-21 17:56] VITALS: BP 151/108
--- NOTE | 2022-07-23 10:14 | NUR ---
Received order for consult. Patient discharged. I tried calling patient to follow up and mailbox is full. I will try again.
== END 2022-07-21 19:59 | disposition home or self-care (01) ==
LOC: ER 17:52
DX: F15.10 Other stimulant abuse, uncomplicated (principal); F17.200 Nicotine dependence, unspecified, uncomplicated; Z87.81 Personal history of (healed) traumatic fracture; Z79.899 Other long term (current) drug therapy
CPT/HCPCS: 73070; 99283

== ENCOUNTER 2024-10-07 18:06 | Emergency (ER) | payer MEDICAID ==
[~2024-10-07] VITALS: Ht 162.6 cm; Wt 81.2 kg
[~2024-10-07 18:06] MED LIST changes: +CHLO473M13 PO; -CHLO473M3 PO
[2024-10-07 18:16] VITALS: BP 158/93; PULSE 98; RESP 15; O2SAT 95
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
--- NOTE | 2024-10-07 19:06 | ELECTROCARDIOGRAPH REPORT ---
[facility] Test Date: 2024-10-07 Test Time: 19:04:04 Pat Name: LIDIA ORDAZ Department: [facility]- Patient ID: [facility]-[id number] Room: Gender: F Block Sawyer: VIANNEY : 1980 Requested By: TERI KING Order Number: [id number] Reading MD: Measurements Intervals [place] Rate: 99 P: 80 WI: 172 QRS: 81 QRSD: 95 T: 63 QT: 349 QTc: 448 Interpretive Statements Sinus tachycardia Ventricular premature complex Right atrial enlargement ST elevation suggests acute pericarditis Please click the below link to view image of tracing.
[2024-10-07] MEDS: ibuprofen tablet 400 MG TABLET PO ONE (19:17)
[2024-10-07 19:45] LABS: MEAN PLATELET VOLUME 8.7 FL (7.4-10.4); RED CELL DISTRIBUTION WIDTH 14.0 % (11.5-14.5)
[2024-10-07] MEDS ORDERED: iohexol 300mg/ml 100ml inj. ONE (20:02)
[2024-10-07 20:17] LABS: CREATININE 0.86 MG/DL (0.40-0.90); PRO BRAIN NATRIURETIC PEPTIDE 46 PG/ML (0-125); TOTAL CARBON DIOXIDE 28.7 MMOL/L (24-32); eCRCL 71 ML/MIN; eGFR 71 ML/MIN
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
[2024-10-07] MEDS ORDERED: HYDR-3965 PO (21:27)
[2024-10-07 21:34] VITALS: TEMP 96.3
== END 2024-10-07 21:38 | disposition home or self-care (01) ==
LOC: ER 18:06
DX: M54.2 Cervicalgia (principal); F15.90 Other stimulant use, unspecified, uncomplicated; R06.02 Shortness of breath; V89.2XXA Person injured in unspecified motor-vehicle accident, traffic, initial encounter; Y93.89 Activity, other specified; Y92.410 Unspecified street and highway as the place of occurrence of the external cause; Y99.8 Other external cause status
CPT/HCPCS: 36415; 71045; 71260; 80048; 83880; 84484; 85025; 85651; 86140; 93005; 99285; Q9967